=== PATIENT | male | born 1955 | race American Indian/Alaskan Native ===

== ENCOUNTER 2018-02-01 12:59 | Emergency (ER) | payer BC, OTHER ==
[2018-02-01 13:07] VITALS: BP 156/79
[2018-02-01] MEDS ORDERED: MOTRIN PO ONE (14:11)
[2018-02-01] MEDS ORDERED: PERCOCET 5/325 PO ONE (14:11)
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
[2018-02-01] MEDS ORDERED: BOOSTRIX IM ONE (14:20)
[2018-02-01] MEDS ORDERED: ANTIBIOTIC OINT TP PRN (14:20)
[2018-02-01 14:21] LABS: Basophils # (Auto) 0.1 K/mm3 (0.0-0.1); Basophils % (Auto) 1.1 % (0.0-1.8); Eosinophils # (Auto) 0.3 K/mm3 (0.0-0.4); Eosinophils % (Auto) 4.1 % (0.0-4.3); Hematocrit 39.5 % (35.5-45.6); Hemoglobin 13.4 gm/dl (11.8-15.2); Lymphocytes % (Auto) 31.1 % (13.4-35.0); Mean Corpuscular HGB Conc 34 % (32-34); Mean Corpuscular Hemoglobin 30 pg (28-32); Mean Corpuscular Volume 90 fl (84-94); Monocytes # (Auto) 0.6 K/mm3 (0.0-0.8); Monocytes % (Auto) 8.8 % (0.0-7.3); Platelet Count 202 K/mm3 (140-440); Red Blood Count 4.41 M/mm3 (3.65-5.03); Red Cell Distribution Width 14.4 % (13.2-15.2)
[2018-02-01 14:33] LABS: BUN/Creatinine Ratio 8; Blood Urea Nitrogen 8 mg/dL (9-20); Calcium 9.2 mg/dL (8.4-10.2); Hemolysis Index 0
--- NOTE | 2018-02-01 16:13 | XRay Report ---
FINAL REPORT EXAM: XR CHEST ROUTINE 2V HISTORY: chest wall injury/PAIN TECHNIQUE: Frontal and lateral chest x-ray. PRIORS: None. FINDINGS: Cardiac and mediastinal silhouette within normal limits. Lungs are normally expanded and grossly clear. No pleural effusion or apparent pneumothorax. Bony thorax grossly unremarkable. IMPRESSION: 1. No acute findings.
== END 2018-02-01 17:05 | disposition home or self-care (01) ==
LOC: ED 12:59
DX: M54.9 Dorsalgia, unspecified (principal); I10 Essential (primary) hypertension; E11.9 Type 2 diabetes mellitus without complications; J45.909 Unspecified asthma, uncomplicated; Z79.82 Long term (current) use of aspirin; Z79.4 Long term (current) use of insulin; V49.09XA Driver injured in collision with other motor vehicles in nontraffic accident, initial encounter; W22.11XA Striking against or struck by driver side automobile airbag, initial encounter; Y93.89 Activity, other specified; Y99.8 Other external cause status; Y92.488 Other paved roadways as the place of occurrence of the external cause
CPT/HCPCS: 36415; 71046; 80048; 84484; 85025; 90471; 90715; 93005; 93010

== ENCOUNTER 2021-02-18 16:52 | Observation (INO) | payer MEDICARE ==
[2021-02-18 20:09] LABS: Basophils # (Auto) 0.1 K/mm3 (0.0-0.1); Basophils % (Auto) 0.5 % (0.0-1.8); Eosinophils # (Auto) 0.1 K/mm3 (0.0-0.4); Eosinophils % (Auto) 1.2 % (0.0-4.3); Hematocrit 35.1 % (35.5-45.6); Hemoglobin 12.4 gm/dl (11.8-15.2); Lymphocytes # (Auto) 3.2 K/mm3 (1.2-5.4); Lymphocytes % (Auto) 29.6 % (13.4-35.0); Mean Corpuscular HGB Conc 35 % (32-34); Mean Corpuscular Volume 103 fl (84-94); Monocytes # (Auto) 0.7 K/mm3 (0.0-0.8); Monocytes % (Auto) 6.5 % (0.0-7.3); Platelet Count 277 K/mm3 (140-440); Red Blood Count 3.42 M/mm3 (3.65-5.03); Red Cell Distribution Width 15.8 % (13.2-15.2)
--- NOTE | 2021-02-18 20:19 | XRay Report ---
CHEST 1 VIEW 1949 INDICATION / CLINICAL INFORMATION: Fall - syncope COMPARISON: 02/01/2018 FINDINGS: SUPPORT DEVICES: None HEART / MEDIASTINUM: No significant abnormality. LUNGS / PLEURA: No significant pulmonary or pleural abnormality. No pneumothorax. ADDITIONAL FINDINGS: No significant additional findings. IMPRESSION: No significant acute abnormality RIGHT SHOULDER 3 VIEWS 1944 INDICATION: Fall - syncope COMPARISON: None available. FINDINGS: NO fractures or dislocations are seen. MODERATE glenohumeral and acromioclavicular degenera tive changes are noted. MODERATE spurring is seen inferiorly from the acromion which may impinge on t he rotator cuff. Signer Name: Jung Arrieta MD Signed: 02/18/2021 8:14 PM Workstation Name: [id number]
[2021-02-18 20:27] LABS: Alanine Aminotransferase 17 units/L (7-56); Albumin 4.5 g/dL (3.9-5); BUN/Creatinine Ratio 18; Blood Urea Nitrogen 21 mg/dL (9-20); Calcium 9.7 mg/dL (8.4-10.2); Hemolysis Index 7
[2021-02-18] MEDS ORDERED: SODIUM CHLORIDE 0.9% 1000 ML 1,000 ML IV ONE (21:19)
--- NOTE | 2021-02-18 21:22 | Emergency Department Report ---
HPI - General Chief Complaint: Fall Time Seen by Provider: 02/18/21 20:50 - HPI HPI: 66-year-old male with history of hypertension, DM2, and asthma presents after syncopal episode with collapse. Patient states that for the past week he has had diarrhea. He has had 1-2 episodes of loose stool per day. He is also had some mild nasal congestion but no other symptoms. He says that today he used the bathroom and had a bowel movement which was liquidy. Afterwards he walked into the kitchen and all of a sudden began to sweat profusely and the next thing he remembers he woke up and he was on the ground. He is unsure whether he hit his head. He did fall onto his right shoulder and has some right shoulder pain. He denies any preceding chest pain, shortness of breath, nausea, or any other preceding symptoms other than sweating. He also denies any fever/chills, headache, vision change, back pain, neck pain, cough, lower extremity swelling, dark tarry stools, or any other complaints. The patient is vaccinated against COVID-19. He says he has an appointment scheduled for later this week for an MRI to work-up his migraine headaches. He denies any headache today. ED Past Medical Hx - Past Medical History Hx Hypertension: Yes (10YRS) Hx Diabetes: Yes (1989) Hx Asthma: Yes (2014) - Surgical History Additional Surgical History: colonoscopy - Social History Smoking Status: Never Smoker Substance Use Type: None - Medications Home Medications: Home Medications Medication Instructions Recorded Confirmed Last Taken Type Albuterol Sulfate [Proair Hfa] 2 puff IH QDAY PRN 04/06/16 04/06/16 Unknown History Aspirin [Adult Low Dose Aspirin EC] 81 mg PO QDAY 04/06/16 04/06/16 Unknown History Insulin Lispro Prot/Lispro 80 units SQ BID 04/06/16 04/06/16 Unknown History [HumaLOG Mix 75/25 Vial] Lisinopril/Hydrochlorothiazide 2 tab PO QDAY 04/06/16 04/06/16 Unknown History [Lisinopril-Hctz 20-12.5 mg Tab] Lovastatin 20 mg PO QDAY 04/06/16 04/06/16 Unknown History ED Review of Systems ROS: Stated complaint: FELL TODAY/ IN PAIN Other details as noted in HPI Constitutional: denies: chills, fever Eyes: denies: eye pain, vision change ENT: congestion. denies: throat pain Respiratory: denies: cough, shortness of breath Cardiovascular: syncope, other (Diaphoresis prior to syncope). denies: chest pain, palpitations, edema Gastrointestinal: diarrhea. denies: abdominal pain, nausea, vomiting, hematemesis, melena Genitourinary: denies: dysuria, frequency Musculoskeletal: other (Right shoulder pain). denies: back pain, joint swelling, myalgia Neurological: denies: headache, weakness, numbness, paresthesias, confusion, vertigo Physical Exam - Physical Exam Vital Signs: Vital Signs 02/18/21 02/18/21 17:04 20:06 Temperature 98.6 F 98.1 F Pulse Rate 82 74 Respiratory 20 16 Rate Blood Pressure 162/67 168/78 [Right] O2 Sat by Pulse 100 100 Oximetry Physical Exam: GENERAL: Well developed and well nourished. No acute distress HEAD: Normocephalic. No obvious signs of trauma. ENT: Dry mucous membranes. EYES: Extraocular movements are intact. Pupils are equal round and reactive to light bilaterally NECK: Supple. Full ROM is intact. Trachea is midline. LUNGS: Nonlabored breathing. Equal chest rise bilaterally. Clear to auscultation bilaterally. CARDIOVASCULAR: Regular rate and rhythm. No murmurs or rubs. VASCULAR: Cap refill < 2 seconds. 2+ peripheral pulses. 1+ pitting edema of the bilateral lower extremities. ABDOMEN: Abdomen is soft and nondistended. There is no significant tenderness, guarding or rebound. SKIN: Skin is warm and dry NEURO: Patient is awake, alert, and oriented. 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 No focal deficits. Normal motor and sensory exam throughout. Normal speech. MUSCULOSKELETAL: No obvious deformities. There is tenderness of the right shoulder and adjacent chest wall but normal range of motion of the right shoulder including extension/flexion and abduction/adduction. No tenderness of the clavicles. Normal range of motion throughout. BACK/SPINE: No midline tenderness or step-offs of the C/T/L spine. No costovert ebral angle tenderness. ED Course Vital Signs 02/18/21 02/18/21 17:04 20:06 Temperature 98.6 F 98.1 F Pulse Rate 82 74 Respiratory 20 16 Rate Blood Pressure 162/67 168/78 [Right] O2 Sat by Pulse 100 100 Oximetry ED Medical Decision Making - Lab Data Result diagrams: 02/20/21 00:14 02/20/21 00:14 Lab Results 02/18/21 02/18/21 02/18/21 Range/Units 19:53 19:53 21:30 WBC 10.9 (4.5-11.0) K/mm3 RBC 3.42 L (3.65-5.03) M/mm3 Hgb 12.4 (11.8-15.2) gm/dl Hct 35.1 L (35.5-45.6) % MCV 103 H (84-94) fl MCH 36 H (28-32) pg MCHC 35 H (32-34) % RDW 15.8 H (13.2-15.2) % Plt Count 277 (140-440) K/mm3 Lymph % (Auto) 29.6 (13.4-35.0) % Union % (Auto) 6.5 (0.0-7.3) % Eos % (Auto) 1.2 (0.0-4.3) % Baso % (Auto) 0.5 (0.0-1.8) % Lymph # (Auto) 3.2 (1.2-5.4) K/mm3 Union # (Auto) 0.7 (0.0-0.8) K/mm3 Eos # (Auto) 0.1 (0.0-0.4) K/mm3 Baso # (Auto) 0.1 (0.0-0.1) K/mm3 Seg Neutrophils % 62.2 (40.0-70.0) % Seg Neutrophils # 6.8 (1.8-7.7) K/mm3 PT 13.7 (12.2-14.9) Sec. INR 0.99 (0.87-1.13) APTT 29.1 (24.2-36.6) Sec. D-Dimer 721.64 H (0-234) ng/mlDDU Sodium 137 (137-145) mmol/L Potassium 4.2 (3.6-5.0) mmol/L Chloride 101.9 (98-107) mmol/L Carbon Dioxide 21 L (22-30) mmol/L Anion Gap 18 mmol/L BUN 21 H (9-20) mg/dL Creatinine 1.2 (0.8-1.3) mg/dL Estimated GFR > 60 ml/min BUN/Creatinine Ratio 18 % Glucose 81 (75-100) mg/dL Calcium 9.7 (8.4-10.2) mg/dL Total Bilirubin 0.40 (0.1-1.2) mg/dL AST 23 (5-40) units/L ALT 17 (7-56) units/L Alkaline Phosphatase 80 (35-129) units/L Troponin T < 0.010 (0.00-0.029) ng/mL Total Protein 8.0 (6.3-8.2) g/dL Albumin 4.5 (3.9-5) g/dL Albumin/Globulin Ratio 1.3 % Urine Color (Yellow) Urine Turbidity (Clear) Urine pH (5.0-7.0) Ur Specific [place] (1.003-1.030) Urine Protein (Negative) mg/dL Urine Glucose (UA) (Negative) mg/dL Urine Ketones (Negative) mg/dL Urine Blood (Negative) Urine Nitrite (Negative) Urine Bilirubin (Negative) Urine Urobilinogen (<2.0) mg/dL Ur Leukocyte Esterase (Negative) Urine WBC (Auto) (0.0-6.0) /HPF Urine RBC (Auto) (0.0-6.0) /HPF U Epithel Cells (Auto) (0-13.0) /HPF Urine Bacteria (Auto) (Negative) /HPF Urine Mucus /HPF 02/18/21 02/19/21 02/19/21 Range/Units 21:30 02:33 02:44 WBC (4.5-11.0) K/mm3 RBC (3.65-5.03) M/mm3 Hgb (11.8-15.2) gm/dl Hct (35.5-45.6) % MCV (84-94) fl MCH (28-32) pg MCHC (32-34) % RDW (13.2-15.2) % Plt Count (140-440) K/mm3 Lymph % (Auto) (13.4-35.0) % Union % (Auto) (0.0-7.3) % Eos % (Auto) (0.0-4.3) % Baso % (Auto) (0.0-1.8) % Lymph # (Auto) (1.2-5.4) K/mm3 [place] # (Auto) (0.0-0.8) K/mm3 Eos # (Auto) (0.0-0.4) K/mm3 Baso # (Auto) (0.0-0.1) K/mm3 Seg Neutrophils % (40.0-70.0) % Seg Neutrophils # (1.8-7.7) K/mm3 PT (12.2-14.9) Sec. INR (0.87-1.13) APTT (24.2-36.6) Sec. D-Dimer (0-234) ng/mlDDU Sodium (137-145) mmol/L Potassium (3.6-5.0) mmol/L Chloride (98-107) mmol/L Carbon Dioxide (22-30) mmol/L Anion Gap mmol/L BUN (9-20) mg/dL Creatinine (0.8-1.3) mg/dL Estimated GFR ml/min BUN/Creatinine Ratio % Glucose (75-100) mg/dL Calcium (8.4-10.2) mg/dL Total Bilirubin (0.1-1.2) mg/dL AST (5-40) units/L ALT (7-56) units/L Alkaline Phosphatase (35-129) units/L Troponin T < 0.010 < 0.010 (0.00-0.029) ng/mL Total Protein (6.3-8.2) g/dL Albumin (3.9-5) g/dL Albumin/Globulin Ratio % Urine Color Yellow (Yellow) Urine Turbidity Clear (Clear) Urine pH 5.0 (5.0-7.0) Ur Specific [place] 1.020 (1.003-1.030) Urine Protein <15 mg/dl (Negative) mg/dL Urine Glucose (UA) Neg (Negative) mg/dL Urine Ketones Neg (Negative) mg/dL Urine Blood Neg (Negative) Urine Nitrite Neg (Negative) Urine Bilirubin Neg (Negative) Urine Urobilinogen < 2.0 (<2.0) mg/dL Ur Leukocyte Esterase Neg (Negative) Urine WBC (Auto) 1.0 (0.0-6.0) /HPF Urine RBC (Auto) < 1.0 (0.0-6.0) /HPF U Epithel Cells (Auto) < 1.0 (0-13.0) /HPF Urine Bacteria (Auto) 1+ (Negative) /HPF Urine Mucus Few /HPF - EKG Data -: EKG Interpreted by Mi - EKG Data 02/19/21 04:15 Normal sinus rhythm. Normal axis. Normal intervals. No ectopy. No significant ST segment or T wave abnormalities. - Radiology Data CHEST 1 VIEW 1948 INDICATION / CLINICAL INFORMATION: Fall - syncope COMPARISON: 02/01/2018 FINDINGS: SUPPORT DEVICES: None HEART / MEDIASTINUM: No significant abnormality. LUNGS / PLEURA: No significant pulmonary or pleural abnormality. No pneumothorax. ADDITIONAL FINDINGS: No significant additional findings. IMPRESSION: No significant acute abnormality RIGHT SHOULDER 3 VIEWS 1944 INDICATION: Fall - syncope COMPARISON: None av ailable. FINDINGS: NO fractures or dislocations are seen. MODERATE glenohumeral and acromioclavicular degenerative changes are noted. MODERATE spurring is seen inferiorly from the acromion which may impinge on the rotator cuff. Signer Name: Jung Arrieta MD Signed: 02/18/2021 7:14 PM Workstation Name: [id number] CT HEAD WITHOUT CONTRAST INDICATION : Syncope, possible head trauma. TECHNI QUE: Axial, coronal and sagittal CT imaging was performed from the skull apex through the skull base without contrast. All CT scans at this location are performed using CT dose reduction for ALARA by means of automated exposure control. COMPARISON: None available. FINDINGS: PARENCHYMA: No mass, midline shift, hemorrhage, extraaxial collection or acute territorial infarction. VENTRICLES: Symmetric and normal in size. SOFT TISSUES: No significant abnormality of the included soft tissues/orbits. BONES: No acute osseous abnormality. SINUSES: No significant abnormality. ADDITIONAL FINDINGS: None. IMPRESSION: 1. No acute intracranial abnormality. Signer Name: Milad John MD Signed: 02/18/2021 9:51 PM Workstation Name: [id number] CT CERVICAL SPINE WITHOUT CONTRAST INDICATION: Syncope with collapse, neck injury. COMPARISON: None available. TECHNIQUE: Axial, coronal and sagittal CT imaging of the cervical spine without contrast was performed. All CT scans at this location are performed using CT dose reduction for ALARA by means of automated exposure control. FINDINGS: VERTEBRAE:No acute fracture. Normal alignment. DISC SPACES: Severe discogenic degenerative changes are noted at C5- C6 and C6-C7. FACET JOINTS:There is multilevel bilateral facet arthropathy. CENTRAL CANAL: Mild central canal stenosis is noted at C3-C4 secondary to a disc protrusion. There is moderate central canal stenosis at C6-C7 secondary to a disc osteophyte complex. There is multilevel bilateral neural foraminal narrowing, most notable at C5-C6 and C6-C7. SOFT TISSUES:No significant abnormality. LUNG APICES: No significant abnormality. ADDITIONAL FINDINGS: None IMPRESSION: 1. No acute findings. 2. Severe cervical spondylosis as detailed above. Signer Name: Milad John MD Signed: 02/18/2021 9:54 PM Workstation Name: [id number] CT CHEST, ABDOMEN, AND PELVIS WITH IV CONTRAST INDICATION: Elevated d-dimer, syncope, unspecified abdominal pain. TECHNIQUE: Axial CT images were obtained through the chest, abdomen, and pelvis after 100 cc Omnipaque [address] scans at this location are performed using CT dose reduction for ALARA by means of automated exposure control. COMPARISON: One view of the chest from 02/18/2021 FINDINGS: HEART: Normal in size with a small pericardial effusion. CORONARY ARTERY CALCIFICATION: Moderate. THORACIC AORTA: Mildly calcified and normal in caliber. No other significant abnormality. LYMPH NODES: No significant adenopathy. TRACHEA AND BRONCHI:No significant abnormality. LUNGS: No suspicious nodule, mass or consolidation. PLEURA: No significant pleural effusion. No pneumothorax. LIVER: No significant abnormality. GALLBLADDER: No significant abnormality. BILE DUCTS: No significant abnormality. PANCREAS: No significant abnormality. SPLEEN: No significant abnormality. ADRENALS: No significant abnormality. RIGHT KIDNEY and URETER: No significant abnormality. LEFT KIDNEY and URETER: No significant abnormality. STOMACH and SMALL BOWEL: No significant abnormality. COLON: No significant abnormality. APPENDIX: No significant abnormality. PERITONEUM: No free fluid. No free air. No fluid collection. LYMPH NODES: No significant adenopathy. ABDOMINAL AORTA and ARTERIES: No significant abnormality. IVC and VEINS: No significant abnormality. URINARY BLADDER: Well-distended without an acute abnormality. REPRODUCTIVE ORGANS: No significant abnormality. ADDITIONAL FINDINGS: None. BONES: No acute findings. Mild degenerative changes are noted throughout the spine. IMPRESSION: 1. No acute abnormality of the chest, abdomen or pelvis. 2. Additional findings as above. Signer Name: Milad John MD Signed: 02/19/2021 2:26 AM Workstation Name: [id number] - Medical Decision Making 66-year-old male who presents with right shoulder pain after a syncopal episode at home. The patient has had diarrhea for the past week and states that he went to the bathroom this morning, went into the kitchen and started sweating profusely and then woke up on the ground. He had no preceding chest pain, shortness of breath, focal weakness, sensory changes prior to losing consciousness. He does not think he hit his head and says he has some pain in the right shoulder but no other complaints. Initial assessment he is afebrile and with normal vital signs other than elevated blood pressure. He has full range of motion of the right shoulder despite some tenderness. Normal strength and sensation throughout with nonfocal neurologic exam. He has no mid spinal tenderness or obvious lacerations/abrasions/contusions. Nonetheless, given that the patient had profuse sweating just prior to his syncopal episode which is a red flag sign, I feel that he requires further work-up with full set of labs, EKG, chest x-ray, right shoulder x-ray, and CT of the head and C-spine to assess for intracranial hemorrhage and/or fracture given that the patient is older than the age of 59 and lost consciousness and possibly hit his head. We will give 1 L of IV fluids and continue to monitor the patient closely. At 9:23 PM, the patient's labs have resulted and reveal no significant leukocytosis or anemia. Kidney function is normal and there are no significant electrolytes. Initial troponin is negative. Chest x-ray reveals no acute abnormalities. Shoulder x-ray reveals no acute abnormalities but there is moderate spurring seen inferiorly from the acromion which may impinge on the rotator cuff. Nonetheless, the patient's neuromuscular exam at the right shoulder is within normal limits and he has no complaints at this time. CT of the head and C-spine reveals no acute abnormalities but there is severe cervical spondylosis. At 1144, the patient's D-dimer returned elevated. We will thus obtain CTA of the chest/abdomen/pelvis to assess for evidence of pulmonary embolism and/or colitis, cholecystitis, appendicitis, diverticulitis, or other intrathoracic/intra-abdominal abnormality. At 12:20 AM, I went to reassess the patient and the patient reports that he feels extremely itchy. Examination of the patient's lower abdomen reveals that he has bilateral urticaria present. However, the only medication that has been administered here is normal saline. I asked the patient whether he took anything prior to arrival and he says the only thing he took was Tylenol, which she has taken before without reaction. He has no dyspnea/throat closing sensation or other signs of anaphylaxis. We will give 50 mg of IV Benadryl and 10 of IV Decadron for unknown allergic reaction. On repeat assessment at 1:10 AM, the patient reports that his urticaria have resolved. He has no other symptoms at this time. CT reveals no acute abnormalities. Nonetheless, the patient will require admission to the hospital for further work-up and management. He remained stable with no new symptoms at this time. All of the patient's results and the reasoning for admission were explained to the patient who expressed unders tanding and agreement. At 4:10 AM, I spoke with Dr. Lopez the on-call hospitalist regarding case and he accepts patient for admission and will assume care. Critical care attestation.: If time is entered above; I have spent that time in minutes in the direct care of this critically ill patient, excluding procedure time. ED Disposition Clinical Impression: Syncope and collapse, Contusion of right shoulder, Allergic reaction, Diarrhea, Dehydration, Elevated d-dimer Disposition: OP ADMIT IP TO THIS HOSP Is pt being admited?: Yes Condition: Stable
[2021-02-18 22:21] LABS: INR 0.99 (0.87-1.13)
[2021-02-18 22:22] LABS: Partial Thromboplastin Time 29.1 Sec. (24.2-36.6)
--- NOTE | 2021-02-18 22:55 | Cat Scan Report ---
CT HEAD WITHOUT CONTRAST INDICATION : Syncope, possible head trauma. TECHNIQUE: Axial, coronal and sagittal CT imaging was performed from the skull apex through the skul l base without contrast. All CT scans at this location are performed using CT dose reduction for ALA RA by means of automated exposure control. COMPARISON: None available. FINDINGS: PARENCHYMA: No mass, midline shift, hemorrhage, extraaxial collection or acute territorial infarctio n. VENTRICLES: Symmetric and normal in size. SOFT TISSUES: No significant abnormality of the included soft tissues/orbits. BONES: No acute osseous abnormality. SINUSES: No significant abnormality. ADDITIONAL FINDINGS: None. IMPRESSION: 1. No acute intracranial abnormality. Signer Name: Milad John MD Signed: 02/18/2021 10:51 PM Workstation Name: [id number]
--- NOTE | 2021-02-18 22:59 | Cat Scan Report ---
CT CERVICAL SPINE WITHOUT CONTRAST INDICATION: Syncope with collapse, neck injury. COMPARISON: None available. TECHNIQUE: Axial, coronal and sagittal CT imaging of the cervical spine without contrast was performe d. All CT scans at this location are performed using CT dose reduction for ALARA by means of automat ed exposure control. FINDINGS: VERTEBRAE:No acute fracture. Normal alignment. DISC SPACES: Severe discogenic degenerative changes are noted at C5-C6 and C6-C7. FACET JOINTS:There is multilevel bilateral facet arthropathy. CENTRAL CANAL: Mild central canal stenosis is noted at C3-C4 secondary to a disc protrusion. There is moderate central canal stenosis at C6-C7 secondary to a disc osteophyte complex. There is multilevel bilateral neural foraminal narrowing, most notable at C5-C6 and C6-C7. SOFT TISSUES:No significant abnormality. LUNG APICES: No significant abnormality. ADDITIONAL FINDINGS: None IMPRESSION: 1. No acute findings. 2. Severe cervical spondylosis as detailed above. Signer Name: Milad John MD Signed: 02/18/2021 10:54 PM Workstation Name: [id number]
[2021-02-19] MEDS ORDERED: diphenhydrAMINE 50 MG/ML VIAL IV ONE (00:26)
[2021-02-19] MEDS ORDERED: dexAMETHasone 20 MG/5 ML VIAL IV ONE (00:26)
[2021-02-19 02:50] LABS: Bacteria,Urine 1+ /HPF (Negative); Bilirubin,Urine NEG (Negative); Blood,Urine NEG (Negative); Color,Urine Yellow (Yellow); Mucus,Urine FEW /HPF; Protein,Urine <15 mg/dL mg/dL (Negative); RBC,Urine < 1.0 /HPF (0.0-6.0); Urobilinogen,Urine < 2.0 mg/dL (<2.0)
--- NOTE | 2021-02-19 03:31 | Cat Scan Report ---
CT CHEST, ABDOMEN, AND PELVIS WITH IV CONTRAST INDICATION: Elevated d-dimer, syncope, unspecified abdominal pain. TECHNIQUE: Axial CT images were obtained through the chest, abdomen, and pelvis after 100 cc Omnipaque [address] All [address] scans at this location are performed using CT dose reduction for ALARA by means of aut omated exposure control. COMPARISON: One view of the chest from 02/18/2021 FINDINGS: HEART: Normal in size with a small pericardial effusion. CORONARY ARTERY CALCIFICATION: Moderate. THORACIC AORTA: Mildly calcified and normal in caliber. No other significant abnormality. LYMPH NODES: No significant adenopathy. TRACHEA AND BRONCHI:No significant abnormality. LUNGS: No suspicious nodule, mass or consolidation. PLEURA: No significant pleural effusion. No pneumothorax. LIVER: No significant abnormality. GALLBLADDER: No significant abnormality. BILE DUCTS: No significant abnormality. PANCREAS: No significant abnormality. SPLEEN: No significant abnormality. ADRENALS: No significant abnormality. RIGHT KIDNEY and URETER: No significant abnormality. LEFT KIDNEY and URETER: No significant abnormality. STOMACH and SMALL BOWEL: No significant abnormality. COLON: No significant abnormality. APPENDIX: No significant abnormality. PERITONEUM: No free fluid. No free air. No fluid collection. LYMPH NODES: No significant adenopathy. ABDOMINAL AORTA and ARTERIES: No significant abnormality. IVC and VEINS: No significant abnormality. URINARY BLADDER: Well-distended without an acute abnormality. REPRODUCTIVE ORGANS: No significant abnormality. ADDITIONAL FINDINGS: None. BONES: No acute findings. Mild degenerative changes are noted throughout the spine. IMPRESSION: 1. No acute abnormality of the chest, abdomen or pelvis. 2. Additional findings as above. Signer Name: Milad John MD Signed: 02/19/2021 3:26 AM Workstation Name: [id number]
[2021-02-19] MEDS ORDERED: DEXTROSE 50% IN WATER (25GM) 50 ML SYRINGE IV PRN (04:37)
[2021-02-19] MEDS ORDERED: MORPHINE 2 MG/1 ML INJ IV PRN (04:37)
[2021-02-19] MEDS ORDERED: MAGNESIUM HYDROXIDE (MOM) ORAL LIQD UDC PO PRN (04:37)
[2021-02-19] MEDS ORDERED: ACETAMINOPHEN 325 MG TAB PO PRN (04:37)
[2021-02-19] MEDS ORDERED: ONDANSETRON 4 MG/2 ML INJ IV PRN (04:37)
--- NOTE | 2021-02-19 04:46 | History and Physical Report ---
History of Present Illness Date of examination: 02/19/21 Date of admission: 02/19/21 04:11 Chief complaint: Syncope and Collapse History of present illness: 66-year-old -Wallisian male with known history of hypertension, diabetes mellitus and asthma presents to the emergency room today with complaints of syncope. He said he was at home today and after using the restroom started feeling profusely sweaty and had a syncopal episode. He suddenly found himself on the floor. He has had 1 or 2 episodes of loose stools but denies any nausea vomiting, no abdominal pain. Denies any hematuria or dysuria, no chest pain or shortness of breath. He denies any head injury and denies any loss of consciousness. He complains of some discomfort on the right shoulder since the syncope. He has had occasional migraines for which he is scheduled to see a neurosurgeon and also get an MRI in a few days. Patient denies any sick contacts and no recent travel. Denies any contact with anyone with COVID-19. Work-up in the emergency room today, labs were significant for a mild elevation of BUN. Troponins were negative, chest x-ray shows no acute abnormality. CT of the cervical spine shows severe spondylosis. CT of the chest and abdomen were unremarkable. Patient has been admitted with syncope and mild dehydration. Past History Past Medical History: diabetes, hypertension, other (Asthma) Past Surgical History: Other (Colonoscopy) Social history: no significant social history Family history: no significant family history Medications and Allergies Allergies Allergy/AdvReac Type Severity Reaction Status Date / Time No Known Allergies Allergy Verified 02/18/21 16:55 Home Medications Medication Instructions Recorded Confirmed Last Taken Type Albuterol Sulfate [Proair Hfa] 2 puff IH QDAY PRN 04/06/16 04/06/16 Unknown History Aspirin [Adult Low Dose Aspirin EC] 81 mg PO QDAY 04/06/16 04/06/16 Unknown History Insulin Lispro Prot/Lispro 80 units SQ BID 04/06/16 04/06/16 Unknown History [HumaLOG Mix 75/25 Vial] Lisinopril/Hydrochlorothiazide 2 tab PO QDAY 04/06/16 04/06/16 Unknown History [Lisinopril-Hctz 20-12.5 mg Tab] Lovastatin 20 mg PO QDAY 04/06/16 04/06/16 Unknown History Active Meds: Active Medications Acetaminophen (Acetaminophen 325 Mg Tab) 650 mg PO Q4H PRN PRN Reason: Pain MILD(1-3)/Fever >100.5/WEISS Dextrose (Dextrose 50% In Water (25gm) 50 Ml Syringe) 50 ml IV Q30MIN PRN; Protocol PRN Reason: Hypoglycemia Heparin Sodium (Porcine) (Heparin 5,000 Unit/1 Ml Vial) 5,000 unit SUB-Q Q8HR WHITNEY Sodium Chloride (Nacl 0.9% 1000 Ml) 1,000 mls @ 125 mls/hr IV DIRECT WHITNEY Insulin Human Lispro (Insulin Lispro 100 Unit/Ml) 0 unit SUB-Q ACHS WHITNEY; Protocol Magnesium Hydroxide (Magnesium Hydroxide (Mom) Oral Liqd Udc) 30 ml PO Q4H PRN PRN Reason: Constipation Morphine Sulfate (Morphine 2 Mg/1 Ml Inj) 2 mg IV Q4H PRN PRN Reason: Pain, Moderate (4-6) Morphine Sulfate (Morphine 4 Mg/1 Ml Inj) 4 mg IV Q4H PRN PRN Reason: Pain , Severe (7-10) Ondansetron HCl (Ondansetron 4 Mg/2 Ml Inj) 4 mg IV Q8H PRN PRN Reason: Nausea And Vomiting Sodium Chloride (Sodium Chloride 0.9% 10 Ml Flush Syringe) 10 ml IV BID WHITNEY Sodium Chloride (Sodium Chloride 0.9% 10 Ml Flush Syringe) 10 ml IV PRN PRN PRN Reason: LINE FLUSH Review of Systems Constitutional: no fever, no chills Ears, nose, mouth and throat: no nasal congestion, no sore throat Cardiovascular: no chest pain, no palpitations Respiratory: no cough, no shortness of breath Gastrointestinal: diarrhea, no abdominal pain, no nausea, no vomiting Genitourinary Male: no dysuria, no hematuria, no flank pain Musculoskeletal: no neck pain, no low back pain Integumentary: no rash, no pruritis Neurological: syncope, no headaches, no confusion Psychiatric: no anxiety, no depression Endocrine: no polyphagia, no polydipsia, no polyuria, no nocturia Exam - Constitutional Vitals: Temp Pulse Resp BP Pulse Ox 98.1 F 75 15 158/74 97 02/18/21 20:06 02/19/21 02:00 02/19/21 02:00 02/19/21 02:00 02/19/21 02:00 General appearance: Present: no acute distress, well-nourished - EENT Eyes: Present: PERRL, EOM intact. Absent: scleral icterus ENT: hearing intact, clear oral mucosa, dentition normal - Neck Neck: Present: supple, normal ROM - Respiratory Respiratory effort: normal Respiratory: bilateral: CTA - Cardiovascular Rhythm: regular Heart Sounds: Present: S1 & S2. Absent: systolic murmur, diastolic murmur, rub, click - Extremities Extremities: no ischemia, pulses intact, pulses symmetrical, No edema, normal temperature, Full ROM Peripheral Pulses: within normal limits - Abdominal General gastrointestinal: Present: soft, non-tender, non-distended, normal bowel sounds. Absent: mass - Integumentary Integumentary: Present: clear, warm, dry, normal turgor. Absent: rash - Musculoskeletal Musculoskeletal: strength equal bilaterally - Psychiatric Psychiatric: appropriate mood/affect, intact judgment & insight, memory intact, cooperative - Neurologic Neurologic: CNII-XII intact, no focal deficits, moves all extremities HEART Score - HEART Score Troponin: Troponin T < 0.010 ng/mL (0.00-0.029) 02/19/21 02:44 Results - Labs CBC & Chem 7: 02/18/21 19:53 02/18/21 19:53 Labs: Abnormal lab results 02/18/21 02/18/21 02/18/21 Range/Units 19:53 19:53 21:30 RBC 3.42 L (3.65-5.03) M/mm3 Hct 35.1 L (35.5-45.6) % MCV 103 H (84-94) fl MCH 36 H (28-32) pg MCHC 35 H (32-34) % RDW 15.8 H (13.2-15.2) % D-Dimer 721.64 H (0-234) ng/mlDDU Carbon Dioxide 21 L (22-30) mmol/L BUN 21 H (9-20) mg/dL Assessment and Plan - Patient Problems (1) Syncope and collapse Current Visit: Yes Status: Acute Plan to address problem: Patient admitted and placed on telemetry. Etiology is unclear. We will schedule patient for carotid Doppler and echocardiogram. (2) Dehydration Current Visit: Yes Status: Acute Plan to address problem: Patient placed on IV fluid. Will monitor BUN and creatinine. (3) Diabetes mellitus Current Visit: Yes Status: Acute Plan to address problem: Patient placed on sliding scale insulin. We will monitor Accu-Cheks closely. (4) Hypertension Current Visit: Yes Status: Acute Plan to address problem: We will resume routine home medications and monitor vital signs closely. (5) Diarrhea Current Visit: Yes Status: Acute Plan to address problem: Patient has had 1 or 2 loose stools. Etiology is unclear. Meanwhile we will continue on IV fluid. (6) DVT prophylaxis Current Visit: Yes Status: Acute Plan to address problem: Patient placed on subcutaneous heparin (7) Full code status Current Visit: Yes Status: Acute Plan to address problem: Patient is full code.
[2021-02-19] MEDS: HEPARIN 5,000 UNIT/1 ML VIAL SUB-Q SCH ×3 (06:33→21:05)
[2021-02-19] MEDS: INSULIN LISPRO 100 UNIT/ML SUB-Q SCH ×4 (07:45→21:04)
--- NOTE | 2021-02-19 08:00 | Progress Note ---
Assessment and Plan Assessment and plan: Autonomic imbalance/syncope Diabetes mellitus type 2 Hypertension Diarrhea 02/19/2021. Await carotid Dopplers and echocardiogram for further evaluation. Continue IV fluid hydration. Check orthostatic vital signs. History Interval history: No new issues overnight. Hospitalist Physical - Constitutional Vitals: Temp Pulse Resp BP Pulse Ox 98.2 F 68 16 149/79 99 02/19/21 06:03 02/19/21 06:03 02/19/21 06:03 02/19/21 07:00 02/19/21 07:00 General appearance: Present: no acute distress, well-nourished - EENT Eyes: Present: PERRL, EOM intact ENT: hearing intact, clear oral mucosa, dentition normal - Neck Neck: Present: supple, normal ROM - Respiratory Respiratory effort: normal Respiratory: bilateral: CTA - Cardiovascular Rhythm: regular Heart Sounds: Present: S1 & S2. Absent: gallop, rub - Extremities Extremities: no ischemia, No edema, Full ROM - Abdominal General gastrointestinal: soft, non-tender, non-distended, normal bowel sounds - Integumentary Integumentary: Present: clear, warm, dry - Neurologic Neurologic: CNII-XII intact, moves all extremities HEART Score - HEART Score Troponin: Troponin T < 0.010 ng/mL (0.00-0.029) 02/19/21 02:44 Results - Labs CBC & Chem 7: 02/18/21 19:53 02/18/21 19:53 Labs: Laboratory Last Values WBC 10.9 K/mm3 (4.5-11.0) 02/18/21 19:53 RBC 3.42 M/mm3 (3.65-5.03) L 02/18/21 19:53 Hgb 12.4 gm/dl (11.8-15.2) 02/18/21 19:53 Hct 35.1 % (35.5-45.6) L 02/18/21 19:53 MCV 103 fl (84-94) H 02/18/21 19:53 MCH 36 pg (28-32) H 02/18/21 19:53 MCHC 35 % (32-34) H 02/18/21 19:53 RDW 15.8 % (13.2-15.2) H 02/18/21 19:53 Plt Count 277 K/mm3 (140-440) 02/18/21 19:53 Lymph % (Auto) 29.6 % (13.4-35.0) 02/18/21 19:53 [place] % (Auto) 6.5 % (0.0-7.3) 02/18/21 19:53 Eos % (Auto) 1.2 % (0.0-4.3) 02/18/21 19:53 Baso % (Auto) 0.5 % (0.0-1.8) 02/18/21 19:53 Lymph # (Auto) 3.2 K/mm3 (1.2-5.4) 02/18/21 19:53 [place] # (Auto) 0.7 K/mm3 (0.0-0.8) 02/18/21 19:53 Eos # (Auto) 0.1 K/mm3 (0.0-0.4) 02/18/21 19:53 Baso # (Auto) 0.1 K/mm3 (0.0-0.1) 02/18/21 19:53 Seg Neutrophils % 62.2 % (40.0-70.0) 02/18/21 19:53 Seg Neutrophils # 6.8 K/mm3 (1.8-7.7) 02/18/21 19:53 PT 13.7 Sec. (12.2-14.9) 02/18/21 21:30 INR 0.99 (0.87-1.13) 02/18/21 21:30 APTT 29.1 Sec. (24.2-36.6) 02/18/21 21:30 D-Dimer 721.64 ng/mlDDU (0-234) H 02/18/21 21:30 Sodium 137 mmol/L (137-145) 02/18/21 19:53 Potassium 4.2 mmol/L (3.6-5.0) 02/18/21 19:53 Chloride 101.9 mmol/L (98-107) 02/18/21 19:53 Carbon Dioxide 21 mmol/L (22-30) L 02/18/21 19:53 Anion Gap 18 mmol/L 02/18/21 19:53 BUN 21 mg/dL (9-20) H 02/18/21 19:53 Creatinine 1.2 mg/dL (0.8-1.3) 02/18/21 19:53 Estimated GFR > 60 ml/min 02/18/21 19:53 BUN/Creatinine Ratio 18 % 02/18/21 19:53 Glucose 81 mg/dL (75-100) 02/18/21 19:53 POC Glucose 180 mg/dL (70-105) H 02/19/21 07:29 Calcium 9.7 mg/dL (8.4-10.2) 02/18/21 19:53 Total Bilirubin 0.40 mg/dL (0.1-1.2) 02/18/21 19:53 AST 23 units/L (5-40) 02/18/21 19:53 ALT 17 units/L (7-56) 02/18/21 19:53 Alkaline Phosphatase 80 units/L (35-129) 02/18/21 19:53 Troponin T < 0.010 ng/mL (0.00-0.029) 02/19/21 02:44 Total Protein 8.0 g/dL (6.3-8.2) 02/18/21 19:53 Albumin 4.5 g/dL (3.9-5) 02/18/21 19:53 Albumin/Globulin Ratio 1.3 % 02/18/21 19:53 Urine Color Yellow (Yellow) 02/19/21 02:33 Urine Turbidity Clear (Clear) 02/19/21 02:33 Urine pH 5.0 (5.0-7.0) 02/19/21 02:33 Ur Specific [place] 1.020 (1.003-1.030) 02/19/21 02:33 Urine Protein <15 mg/dl mg/dL (Negative) 02/19/21 02:33 Urine Glucose (UA) Neg mg/dL (Negative) 02/19/21 02:33 Urine Ketones Neg mg/dL (Negative) 02/19/21 02:33 Urine Blood Neg (Negative) 02/19/21 02:33 Urine Nitrite Neg (Negative) 02/19/21 02:33 Urine Bilirubin Neg (Negative) 02/19/21 02:33 Urine Urobilinogen < 2.0 mg/dL (<2.0) 02/19/21 02:33 Ur Leukocyte Esterase Neg (Negative) 02/19/21 02:33 Urine WBC (Auto) 1.0 /HPF (0.0-6.0) 02/19/21 02:33 Urine RBC (Auto) < 1.0 /HPF (0.0-6.0) 02/19/21 02:33 U Epithel Cells (Auto) < 1.0 /HPF (0-13.0) 02/19/21 02:33 Urine Bacteria (Auto) 1+ /HPF (Negative) 02/19/21 02:33 Urine Mucus Few /HPF 02/19/21 02:33 Active Medications - Current Medications Current Medications: Generic Name Dose Route Start Last Admin Trade Name Freq PRN Reason Stop Dose Admin Acetaminophen 650 mg 02/19/21 04:37 Acetaminophen 325 Mg Tab PO Q4H PRN Pain MILD(1-3)/Fever >100.5/WEISS Dextrose 0 ml 02/19/21 04:37 Dextrose 50% In Water (25gm) 50 Ml Syringe IV Q30MIN PRN Hypoglycemia Protocol Heparin Sodium (Porcine) 5,000 unit 02/19/21 06:00 02/19/21 06:33 Heparin 5,000 Unit/1 Ml Vial SUB-Q 5,000 unit Q8HR WHITNEY Administration Sodium Chloride 1,000 mls @ 125 mls/hr 02/19/21 04:45 Nacl 0.9% 1000 Ml IV DIRECT WHITNEY Insulin Human Lispro 0 unit 02/19/21 07:30 02/19/21 07:45 Insulin Lispro 100 Unit/Ml SUB-Q 2 unit ACHS WHITNEY Administration Protocol Magnesium Hydroxide 30 ml 02/19/21 04:37 Magnesium Hydroxide (Mom) Oral Liqd Udc PO Q4H PRN Constipation Morphine Sulfate 2 mg 02/19/21 04:37 Morphine 2 Mg/1 Ml Inj IV Q4H PRN Pain, Moderate (4-6) Morphine Sulfate 4 mg 02/19/21 04:37 Morphine 4 Mg/1 Ml Inj IV Q4H PRN Pain , Severe (7-10) Ondansetron HCl 4 mg 02/19/21 04:37 Ondansetron 4 Mg/2 Ml Inj IV Q8H PRN Nausea And Vomiting Sodium Chloride 10 ml 02/19/21 10:00 Sodium Chloride 0.9% 10 Ml Flush Syringe IV BID WHITNEY Sodium Chloride 10 ml 02/19/21 04:37 Sodium Chloride 0.9% 10 Ml Flush Syringe IV PRN PRN LINE FLUSH
--- NOTE | 2021-02-19 14:31 | Electrocardiograph Report ---
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
[2021-02-19] MEDS: SODIUM CHLORIDE 0.9% 1000 ML 1,000 ML IV SCH (16:27)
[2021-02-19] MEDS: MORPHINE 4 MG/1 ML INJ IV PRN (23:27)
[2021-02-19] MEDS ORDERED: ALUM-MAG HYDROXIDE-SIMETHICONE 200-200-20MG/5ML ORAL LIQD 30 ML PO PRN (23:43)
[2021-02-20 00:29] LABS: Basophils # (Auto) 0.1 K/mm3 (0.0-0.1); Basophils % (Auto) 1.2 % (0.0-1.8); Eosinophils % (Auto) 0.3 % (0.0-4.3); Hematocrit 35.2 % (35.5-45.6); Hemoglobin 12.3 gm/dl (11.8-15.2); Lymphocytes # (Auto) 2.5 K/mm3 (1.2-5.4); Lymphocytes % (Auto) 31.5 % (13.4-35.0); Mean Corpuscular HGB Conc 35 % (32-34); Mean Corpuscular Volume 103 fl (84-94); Monocytes # (Auto) 0.6 K/mm3 (0.0-0.8); Monocytes % (Auto) 8.1 % (0.0-7.3); Platelet Count 254 K/mm3 (140-440); Red Cell Distribution Width 15.5 % (13.2-15.2)
[2021-02-20 00:40] LABS: INR 0.94 (0.87-1.13)
[2021-02-20 00:50] LABS: BUN/Creatinine Ratio 16; Blood Urea Nitrogen 19 mg/dL (9-20); Hemolysis Index 7
[2021-02-20] MEDS: SODIUM CHLORIDE 0.9% 1000 ML 1,000 ML IV SCH (03:33)
[2021-02-20] MEDS: MORPHINE 4 MG/1 ML INJ IV PRN (03:34)
[2021-02-20] MEDS: HEPARIN 5,000 UNIT/1 ML VIAL SUB-Q SCH ×3 (05:21→22:38)
--- NOTE | 2021-02-20 07:59 | Progress Note ---
Assessment and Plan Assessment and plan: Autonomic imbalance/syncope Diabetes mellitus type 2 Hypertension Diarrhea 02/19/2021. Await carotid Dopplers and echocardiogram for further evaluation. Continue IV fluid hydration. Check orthostatic vital signs. 02/20/2021. Echocardiogram revealed left ventricular systolic function normal with EF of 50 to 55%. Borderline concentric left ventricular hypertrophy. Follow-up carotid Dopplers. Check orthostatic vital signs. Anticipate discharge later today or in a.m. History Interval history: No new issues overnight. Hospitalist Physical - Constitutional Vitals: Temp Pulse Resp BP Pulse Ox 97.9 F 77 20 129/61 100 02/20/21 07:37 02/20/21 07:38 02/20/21 07:37 02/20/21 07:37 02/20/21 07:38 General appearance: Present: no acute distress, well-nourished - EENT Eyes: Present: PERRL, EOM intact ENT: hearing intact, clear oral mucosa, dentition normal - Neck Neck: Present: supple, normal ROM - Respiratory Respiratory effort: normal Respiratory: bilateral: CTA - Cardiovascular Rhythm: regular Heart Sounds: Present: S1 & S2. Absent: gallop, rub - Extremities Extremities: no ischemia, No edema, Full ROM - Abdominal General gastrointestinal: soft, non-tender, non-distended, normal bowel sounds - Integumentary Integumentary: Present: clear, warm, dry - Neurologic Neurologic: CNII-XII intact, moves all extremities HEART Score - HEART Score Troponin: Troponin T < 0.010 ng/mL (0.00-0.029) 02/20/21 00:14 Results - Labs CBC & Chem 7: 02/20/21 00:14 02/20/21 00:14 Labs: Laboratory Last Values WBC 7.8 K/mm3 (4.5-11.0) 02/20/21 00:14 RBC 3.40 M/mm3 (3.65-5.03) L 02/20/21 00:14 Hgb 12.3 gm/dl (11.8-15.2) 02/20/21 00:14 Hct 35.2 % (35.5-45.6) L 02/20/21 00:14 MCV 103 fl (84-94) H 02/20/21 00:14 MCH 36 pg (28-32) H 02/20/21 00:14 MCHC 35 % (32-34) H 02/20/21 00:14 RDW 15.5 % (13.2-15.2) H 02/20/21 00:14 Plt Count 254 K/mm3 (140-440) 02/20/21 00:14 Lymph % (Auto) 31.5 % (13.4-35.0) 02/20/21 00:14 [place] % (Auto) 8.1 % (0.0-7.3) H 02/20/21 00:14 Eos % (Auto) 0.3 % (0.0-4.3) 02/20/21 00:14 Baso % (Auto) 1.2 % (0.0-1.8) 02/20/21 00:14 Lymph # (Auto) 2.5 K/mm3 (1.2-5.4) 02/20/21 00:14 [place] # (Auto) 0.6 K/mm3 (0.0-0.8) 02/20/21 00:14 Eos # (Auto) 0.0 K/mm3 (0.0-0.4) 02/20/21 00:14 Baso # (Auto) 0.1 K/mm3 (0.0-0.1) 02/20/21 00:14 Seg Neutrophils % 58.9 % (40.0-70.0) 02/20/21 00:14 Seg Neutrophils # 4.6 K/mm3 (1.8-7.7) 02/20/21 00:14 PT 13.2 Sec. (12.2-14.9) 02/20/21 00:14 INR 0.94 (0.87-1.13) 02/20/21 00:14 APTT 29.1 Sec. (24.2-36.6) 02/18/21 21:30 D-Dimer 721.64 ng/mlDDU (0-234) H 02/18/21 21:30 Sodium 133 mmol/L (137-145) L 02/20/21 00:14 Potassium 4.9 mmol/L (3.6-5.0) 02/20/21 00:14 Chloride 98.6 mmol/L (98-107) 02/20/21 00:14 Carbon Dioxide 23 mmol/L (22-30) 02/20/21 00:14 Anion Gap 16 mmol/L 02/20/21 00:14 BUN 19 mg/dL (9-20) 02/20/21 00:14 Creatinine 1.2 mg/dL (0.8-1.3) 02/20/21 00:14 Estimated GFR > 60 ml/min 02/20/21 00:14 BUN/Creatinine Ratio 16 % 02/20/21 00:14 Glucose 257 mg/dL (75-100) H 02/20/21 00:14 POC Glucose 372 mg/dL (70-105) H 02/20/21 07:38 Calcium 9.0 mg/dL (8.4-10.2) 02/20/21 00:14 Total Bilirubin 0.40 mg/dL (0.1-1.2) 02/18/21 19:53 AST 23 units/L (5-40) 02/18/21 19:53 ALT 17 units/L (7-56) 02/18/21 19:53 Alkaline Phosphatase 80 units/L (35-129) 02/18/21 19:53 Troponin T < 0.010 ng/mL (0.00-0.029) 02/20/21 00:14 Total Protein 8.0 g/dL (6.3-8.2) 02/18/21 19:53 Albumin 4.5 g/dL (3.9-5) 02/18/21 19:53 Albumin/Globulin Ratio 1.3 % 02/18/21 19:53 Urine Color Yellow (Yellow) 02/19/21 02:33 Urine Turbidity Clear (Clear) 02/19/21 02:33 Urine pH 5.0 (5.0-7.0) 02/19/21 02:33 Ur Specific [place] 1.020 (1.003-1.030) 02/19/21 02:33 Urine Protein <15 mg/dl mg/dL (Negative) 02/19/21 02:33 Urine Glucose (UA) Neg mg/dL (Negative) 02/19/21 02:33 Urine Ketones Neg mg/dL (Negative) 02/19/21 02:33 Urine Blood Neg (Negative) 02/19/21 02:33 Urine Nitrite Neg (Negative) 02/19/21 02:33 Urine Bilirubin Neg (Negative) 02/19/21 02:33 Urine Urobilinogen < 2.0 mg/dL (<2.0) 02/19/21 02:33 Ur Leukocyte Esterase Neg (Negative) 02/19/21 02:33 Urine WBC (Auto) 1.0 /HPF (0.0-6.0) 02/19/21 02:33 Urine RBC (Auto) < 1.0 /HPF (0.0-6.0) 02/19/21 02:33 U Epithel Cells (Auto) < 1.0 /HPF (0-13.0) 02/19/21 02:33 Urine Bacteria (Auto) 1+ /HPF (Negative) 02/19/21 02:33 Urine Mucus Few /HPF 02/19/21 02:33 [place]/IV: Voiding Method Toilet Active Medications - Current Medications Current Medications: Generic Name Dose Route Start Last Admin Trade Name Freq PRN Reason Stop Dose Admin Acetaminophen 650 mg 02/19/21 04:37 Acetaminophen 325 Mg Tab PO Q4H PRN Pain MILD(1-3)/Fever >100.5/WEISS Al Hydrox/Mg Hydrox/Simethicone 30 ml 02/19/21 23:43 02/19/21 23:54 Alum-Mag Hydroxide-Simethicone [id number]/5ml Oral Liqd 30 Ml PO 30 ml Q4H PRN Administration Indigestion Dextrose 0 ml 02/19/21 04:37 Dextrose 50% In Water (25gm) 50 Ml Syringe IV Q30MIN PRN Hypoglycemia Protocol Heparin Sodium (Porcine) 5,000 unit 02/19/21 06:00 02/20/21 05:21 Heparin 5,000 Unit/1 Ml Vial SUB-Q 5,000 unit Q8HR WHITNEY Administration Sodium Chloride 1,000 mls @ 125 mls/hr 02/19/21 04:45 02/20/21 03:33 Nacl 0.9% 1000 Ml IV 125 mls/hr DIRECT WHITNEY Administration Insulin Human Lispro 0 unit 02/19/21 07:30 02/19/21 21:04 Insulin Lispro 100 Unit/Ml SUB-Q 6 unit ACHS WHITNEY Administration Protocol Magnesium Hydroxide 30 ml 02/19/21 04:37 Magnesium Hydroxide (Mom) Oral Liqd Udc PO Q4H PRN Constipation Morphine Sulfate 2 mg 02/19/21 04:37 Morphine 2 Mg/1 Ml Inj IV Q4H PRN Pain, Moderate (4-6) Morphine Sulfate 4 mg 02/19/21 04:37 02/20/21 03:34 Morphine 4 Mg/1 Ml Inj IV 4 mg Q4H PRN Administration Pain , Severe (7-10) Ondansetron HCl 4 mg 02/19/21 04:37 Ondansetron 4 Mg/2 Ml Inj IV Q8H PRN Nausea And Vomiting Sodium Chloride 10 ml 02/19/21 10:00 02/19/21 21:06 Sodium Chloride 0.9% 10 Ml Flush Syringe IV 10 ml BID WHITNEY Administration Sodium Chloride 10 ml 02/19/21 04:37 Sodium Chloride 0.9% 10 Ml Flush Syringe IV PRN PRN LINE FLUSH
[2021-02-20] MEDS: INSULIN LISPRO 100 UNIT/ML SUB-Q SCH ×3 (08:33→18:35)
--- NOTE | 2021-02-20 17:18 | Vascular Lab Report ---
DUPLEX DOPPLER ULTRASOUND CAROTID, BILATERAL INDICATION / CLINICAL INFORMATION: syncope. COMPARISON: None available. FINDINGS: RIGHT CAROTID: - PLAQUE ESTIMATE (%): < 50% - CCA velocity: 76 cm/sec. - ICA peak systolic velocity: 82 cm/sec. - ICA/CCA PSV Ratio: 1.08 Right Vertebral Artery: Antegrade flow. LEFT CAROTID: - PLAQUE ESTIMATE: < 50% - CCA velocity: 111 cm/sec. - ICA peak systolic velocity: 112 cm/sec. - ICA/CCA PSV Ratio: 1.01 Left Vertebral Artery: Antegrade flow. IMPRESSION: 1. Right Internal Carotid Artery: Less than 50% diameter stenosis. 2. Left Internal Carotid Artery: Less than 50% diameter stenosis. Velocity criteria are extrapolated from diameter data as defined by the Society of Radiologists in [facility] Consensus Conference, Radiology 2003; 229;340-346. NO STENOSIS (NORMAL) * Plaque = none; ICA PSV < 125 cm/sec; ICA/CCA PSV Ratio < 2.0 <50% STENOSIS * Plaque < 50%; ICA PSV < 125 cm/sec; ICA/CCA PSV Ratio < 2.0 50-69% STENOSIS * Plaque > 50%; ICA PSV = 125-230 cm/sec; ICA/CCA PSV Ratio = 2.0-4.0 >70% BUT <100% STENOSIS * Plaque > 50%; ICA PSV > 230 cm/sec; ICA/CCA PSV Ratio > 4.0 NEAR OCCLUSION * Plaque = visible lumen; ICA PSV = high/low/none; ICA/CCA PSV Ratio = variable TOTAL OCCLUSION * Plaque = no lumen; ICA PSV = none; ICA/CCA PSV Ratio = N/A Signer Name: Antoine Hobson MD Signed: 02/20/2021 5:13 PM Workstation Name: [id number]
[2021-02-20] MEDS: INSULIN NPH/REGULAR 70/30 INJ SUB-Q SCH (20:49)
[2021-02-21] MEDS: HEPARIN 5,000 UNIT/1 ML VIAL SUB-Q SCH (05:19)
[2021-02-21] MEDS: INSULIN LISPRO 100 UNIT/ML SUB-Q SCH ×3 (05:20→11:50)
[2021-02-21] MEDS: INSULIN NPH/REGULAR 70/30 INJ SUB-Q SCH (10:37)
--- NOTE | 2021-02-21 11:27 | Discharge Summary ---
Providers - Providers Date of Admission: 02/19/21 04:11 Date of discharge: 02/21/21 Attending physician: ALFRED LANGSTON 02/19/21 04:37 Consult to Dietitian/Nutrition [CONS] Routine Physician Instructions: Reason For Exam: Reason for Consult: Diet education Primary care physician: ARMORED SERVICE TECHNICIAN Hospitalization Condition: Fair Hospital course: 66-year-old -Serbian male with known history of hypertension, diabetes mellitus and asthma presents to the emergency room with complaints of syncope. He said he was at home and after using the restroom started feeling profusely sweaty and had a syncopal episode. He suddenly found himself on the floor. He has had 1 or 2 episodes of loose stools but denies any nausea vomiting, no abdominal pain. Denies any hematuria or dysuria, no chest pain or shortness of breath. He denies any head injury and denies any loss of consciousness. Work up in the emergency room today, labs were significant for a mild elevation of BUN. Troponins were negative, chest x-ray shows no acute abnormality. CT of the cervical spine shows severe spondylosis. CT of the chest and abdomen were unremarkable. Patient was admitted with syncope and mild dehydration. Autonomic imbalance/syncope Diabetes mellitus type 2 Hypertension Diarrhea 02/19/2021. Await carotid Dopplers and echocardiogram for further evaluation. Continue IV fluid hydration. Check orthostatic vital signs. 02/20/2021. Echocardiogram revealed left ventricular systolic function normal with EF of 50 to 55%. Borderline concentric left ventricular hypertrophy. Follow-up carotid Dopplers. Check orthostatic vital signs. Anticipate discharge later today or in a.m. 02/21/2021 Patient feels better. No complaints. Stable to discharge home. Disposition: DC- TO HOME OR SELFCARE Final Discharge Diagnosis (Prints w/discharge instructions): 1.Syncope. 2.Dehydration - Discharge Diagnoses (1) Dehydration Status: Acute (2) Diabetes mellitus Status: Acute Qualifiers: Diabetes mellitus type: type 2 (3) Diarrhea Status: Acute (4) Hypertension Status: Acute (5) Syncope and collapse Status: Acute Comment: due to dehydration Core Measure Documentation - Palliative Care Palliative Care/ Comfort Measures: Not Applicable - Core Measures Any of the following diagnoses?: none Exam - Constitutional Vitals: Temp Pulse Resp BP Pulse Ox 98.0 F 83 18 147/71 98 02/21/21 08:26 07/27/21 08:26 02/21/21 08:26 02/21/21 08:26 02/21/21 08:26 Plan Activity: advance as tolerated Diet: low fat, low cholesterol, low salt, diabetic Plan of Treatment: 1.Follow up with PCP in 1 week Follow up with: PRIMARY CAREMD [Primary Care Provider] - 3-5 Days
[2021-02-21 11:34] VITALS: BP 141/77
== END 2021-02-21 15:15 | disposition home or self-care (01) ==
LOC: ED 16:52 → 3A 02-19 04:11 → 3B-SURG 02-19 06:25
PROVIDERS: ADMIT Internal Medicine Geriatric Medicine; ATTEND Internal Medicine
DX: S40.011A Contusion of right shoulder, initial encounter (principal); R55 Syncope and collapse; E86.0 Dehydration; I10 Essential (primary) hypertension; E11.9 Type 2 diabetes mellitus without complications; J45.909 Unspecified asthma, uncomplicated; T78.40XA Allergy, unspecified, initial encounter; R77.8 Other specified abnormalities of plasma proteins; R07.89 Other chest pain; R10.9 Unspecified abdominal pain; Z79.899 Other long term (current) drug therapy; Z98.890 Other specified postprocedural states; Z79.82 Long term (current) use of aspirin; Z79.4 Long term (current) use of insulin; W18.30XA Fall on same level, unspecified, initial encounter; Y93.89 Activity, other specified; Y92.89 Other specified places as the place of occurrence of the external cause; Y99.8 Other external cause status
CPT/HCPCS: 36415; 70450; 71045; 71260; 72125; 73030; 74177; 80048; 80053; 81001; 82962; 84484; 85025; 85379; 85610; 85730; 93005; 93306; 93880; 96361; 96372; 96374; 96375; 96376; 99285; G0378; J1100; J1200; J1644; J2270; J2405; J7030; Q9967; J1815